=== PATIENT | male | born 1985 | race Caucasian/White ===

== ENCOUNTER 2016-12-04 19:23 | Emergency (ER) | payer OTHER ==
[~2016-12-04] VITALS: Ht 180.3 cm; Wt 88.5 kg
--- NOTE | 2016-12-04 19:33 | NUR ---
PATIENT BROUGHT IN BY STAFF MEMBER FROM [facility] FOR C/O CP X6 MONTHS NON RADIATING. SENT HERE FOR EVAL. PATIENT IS ANXIOUS AT TIME
[2016-12-04] MEDS ORDERED: GABA600T2 PO (19:57)
[2016-12-04] MEDS ORDERED: CLON0.1T PO ×2 (19:57→19:58)
[2016-12-04] MEDS ORDERED: CLON0.5T4 PO (19:57)
[2016-12-04] MEDS ORDERED: MAG30ORA PO (19:58)
[2016-12-04] MEDS ORDERED: LOPE2CAP40 PO (19:58)
[2016-12-04] MEDS ORDERED: CALC300T4 PO (19:58)
[2016-12-04] MEDS ORDERED: ONDA4TAB5 PO (19:58)
[2016-12-04] MEDS ORDERED: HYDR50CA PO (19:58)
[2016-12-04] MEDS ORDERED: NERVE TONIC (19:58)
[2016-12-04] MEDS ORDERED: QUET200T PO (19:58)
[2016-12-04] MEDS ORDERED: TRAZ-147 PO (19:58)
[2016-12-04] MEDS ORDERED: DOCU-25 PO (19:58)
[2016-12-04] MEDS ORDERED: IBUP-1955 PO (19:58)
[2016-12-04] MEDS ORDERED: LORA-259 PO (19:58)
[2016-12-04] MEDS ORDERED: DIPH25CA83 PO (19:58)
[2016-12-04 20:10] LABS: BASOPHILS # (AUTO) 0.1 K/uL (0.0-8.0); BASOPHILS % (AUTO) 1.5 % (0.0-2.0); EOSINOPHILS % (AUTO) 0.6 % (0.0-7.0); HEMATOCRIT 46.3 % (40-50); HEMOGLOBIN 15.9 G/DL (14.0-18.0); LYMPHOCYTES # (AUTO) 1.9 K/UL (0.8-4.8); LYMPHOCYTES % (AUTO) 28.7 % (20.5-51.5); MEAN CORPUSCULAR HEMOGLOBIN 32.7 UUG (27.0-31.0); MEAN CORPUSCULAR HGB CONC 34 g/dL (32.0-37.0); MEAN CORPUSCULAR VOLUME 95.3 FL (82.0-92.0); MONOCYTES # (AUTO) 0.6 K/UL (0.1-1.30); MONOCYTES % (AUTO) 9.2 % (0.0-11.0); NEUTROPHILS # (AUTO) 4.1 K/UL (1.8-8.9); PLATELET COUNT (AUTO) 243 K/UL (150-450); RED BLOOD CELL COUNT(AUTO) 4.86 MIL/UL (4.7-6.1); WHITE BLOOD COUNT (AUTO) 6.7 K/UL (4.0-11.2)
[2016-12-04 20:18] LABS: POTASSIUM 4.4 mmol/L (3.5-5.1)
[2016-12-04 20:23] LABS: BILIRUBIN,DIRECT 0.1 mg/dL (0.0-0.2); BILIRUBIN,TOTAL 0.1 mg/dL (0.2-1.0); TOTAL PROTEIN, SERUM 6.3 g/dL (6.4-8.2)
[2016-12-04] MEDS ORDERED: CLONAZEPAM 0.5 MG TABLET PO ONE ×2 (21:15→21:45)
[2016-12-04] MEDS ORDERED: CLONAZEPAM 0.5 MG TABLET ONE ×2 (21:26→21:52)
--- NOTE | 2016-12-04 22:30 | NUR ---
PATIENT IN ROOM AMBUALTING WITH STEADY GAIT,ANXIOUS AT TIME. NO DISTRESS NOTED
--- NOTE | 2016-12-04 23:20 | NUR ---
Patient discharged BACK TO [facility] in stable conditon WITH STAFF MEMBER FROM [facility] TAKING HIM BACK. Written and verbal after care instructions given. Patient verbalizes understanding of instructions.
[2016-12-04 23:23] VITALS: BP 118/75
== END 2016-12-04 23:23 | disposition home or self-care (01) ==
LOC: ER 19:25
DX: F41.9 Anxiety disorder, unspecified (principal); R07.9 Chest pain, unspecified; F32.9 Major depressive disorder, single episode, unspecified; F41.0 Panic disorder [episodic paroxysmal anxiety]; F17.210 Nicotine dependence, cigarettes, uncomplicated; F19.10 Other psychoactive substance abuse, uncomplicated
CPT/HCPCS: 36415; 70030-TC; 71010; 85025; 93005; A4663